=== PATIENT | female | born 1955 | race Caucasian/White ===

== ENCOUNTER 2018-04-29 09:09 | Day surgery (SDC) | payer OTHER ==
[2018-04-29] MEDS ORDERED: LIDOCAINE 1% 2 ML INJ ID PRN (09:43)
[2018-04-29] MEDS ORDERED: LR 1,000 ML IV ONE (09:43)
[2018-04-29] MEDS ORDERED: LIDOCAINE 2% 100 MG/5 ML SYR ONE (09:45)
[2018-04-29] MEDS ORDERED: PROPOFOL/EMULSION 500 MG/50 ML BOTTLE IV ONE (09:46)
[2018-04-29] MEDS ORDERED: fentaNYL 100 MCG/2 ML INJ ONE (09:46)
--- NOTE | 2018-04-29 09:49 | PDGENHP ---
History & Physical Chief Complaint: High risk screening colonoscopy family history in [facility] History of Present Illness: 63 year old female presenting for screening colonoscopy, poor prep yesterday, opioid use Relevant Physical Exam: Alert and oriented x 3, MM moist, Mallampati 1, Abdomen soft non tender Cardiorespiratory Assessment: RRR, CTAB, ASA III
--- NOTE | 2018-04-29 10:02 | PDANEPAE ---
ANE History of Present Illness high risk family history screening, here for colonoscopy ANE Past Medical History - Cardiovascular History Hx Hypertension: No Hx Arrhythmias: No Hx Chest Pain: No Hx Coronary Artery / Peripheral Vascular Disease: No - Pulmonary History Hx COPD: No Hx Asthma/Reactive Airway Disease: No - Neurologic History Hx Cerebrovascular Accident: No - Endocrine History Hx Diabetes: No Hypothyroid: No Hyperthyroid: No - Renal History Hx Renal Disorders: No - Other Health History Other Health History: takes chronic opioids ANE Review of Systems Review of Systems: ANE Patient History - Allergies Allergies/Adverse Reactions: Sulfa (Sulfonamide Antibiotics) Allergy (Severe, Verified 04/29/18 10:01) Anaphylaxis sulfite Allergy (Verified 04/29/18 10:00)
[2018-04-29] MEDS ORDERED: MEPERIDINE 25 MG/0.5 ML AMP IVP PRN (10:57)
[2018-04-29] MEDS ORDERED: DEXAMETHASONE 4 MG/ML VIAL IVP PRN (10:57)
[2018-04-29] MEDS ORDERED: HYDROCODONE/APAP 5/325 TAB PO PRN (10:57)
[2018-04-29] MEDS ORDERED: ONDANSETRON 4 MG/2 ML VIAL IVP PRN (10:57)
[2018-04-29] MEDS ORDERED: NALOXONE HCL 0.4 MG/ML INJ IVP PRN (10:57)
[2018-04-29] MEDS ORDERED: fentaNYL 100 MCG/2 ML INJ IVP PRN (10:57)
[2018-04-29] MEDS ORDERED: HYDROmorphONE/DILAUDID 2 MG/ML INJ IVP PRN (10:57)
--- NOTE | 2018-04-29 11:08 | GIREPORT ---
[facility] Surgical Services - Endoscopy Department Patient Name: Payton Roberts Procedure Date: 04/29/2018 10:29 AM Patient Type: Outpatient Attending MD/ ER Physician: Leticia Rahman MD Procedure: Colonoscopy Indications: Screening in patient at increased risk: Family history of 1st-degree relative with colorectal cancer before age 60 years (mother age 54) Providers: Leticia Rahman MD Medicines: Monitored Anesthesia Care Complications: No immediate complications. Description of Procedure: After obtaining informed consent, the scope was passed under direct vis ion. Throughout the procedure, the patient's blood pressure, pulse, and oxyg en saturations were monitored continuously. The Colonoscope with irrigatio n channel was introduced through the anus and advanced to the cecum, identified by appendiceal orifice and ileocecal valve. The colonoscopy was performed without difficulty. The patient tolerated the procedure well. The quality of the bowel preparation was good. The ileocecal valve, appendi ceal orifice, and rectum were photographed. Findings: A diffuse area of moderate melanosis was found in the entire colon. Two sessile polyps were found in the hepatic flexure and cecum. The mike yps were 1 to 2 mm in size. These polyps were removed with a cold snare. Resection and retrieval were complete. Estimated blood loss was minimal . Internal hemorrhoids were found during retroflexion. Estimated Blood Loss: Estimated blood loss was minimal. Post Op Diagnosis: - Melanosis in the colon. - Two 1 to 2 mm polyps at the hepatic flexure and in the cecum, removed with a cold snare. Resected and retrieved. - Internal hemorrhoids. Recommendation: - Patient has a contact number available for emergencies. The signs and symptoms of potential delayed complications were discussed with the pat ient. Return to normal activities tomorrow. Written discharge instructions we re provided to the patient. - Resume previous diet. - Continue present medications. - Repeat colonoscopy in 5 years for surveillance. - Await results of biopsies. - Thank you for allowing me to participate in the care of this patient. Attending Participation: I personally performed the entire procedure. Leticia Rahman MD Leticia Rahman MD 04/29/2018 11:08:05 AM This report has been signed electronicallyLeticia Rahman MD Number of Addenda: 0 Note Initiated On: 04/29/2018 10:29 AM Total Procedure Duration Time 0 hours 18 minutes 38 seconds [email or web address]
[2018-04-29] MEDS ORDERED: IBUPROFEN 200 MG TAB PO ONE ×2 (12:54→13:15)
[2018-04-29 13:10] VITALS: BP 161/98
--- NOTE | 2018-04-29 14:32 | POSTANESTH ---
Post Anesthetic Evaluation Cardiovascular Status: Normal, Stable Respiratory Status: Normal, Stable Level of Consciousness/Mental Status: Can Participate in Eval, Mildly Sleepy, Arousable Pain Control: Adequate, Prn Tx Ordered Nausea/Vomiting Control: Adequate, Prn Tx Ordered Complications Possibly Related to Anesthesia: None Noted
== END 2018-04-29 13:30 | disposition home or self-care (01) ==
LOC: FSGY 09:09
PROVIDERS: ATTEND Internal Medicine Gastroenterology
DX: Z12.11 Encounter for screening for malignant neoplasm of colon (principal); D12.0 Benign neoplasm of cecum; D12.3 Benign neoplasm of transverse colon; Z80.0 Family history of malignant neoplasm of digestive organs; F11.90 Opioid use, unspecified, uncomplicated
CPT/HCPCS: J2001; J2704; J3010